=== PATIENT | male | born 1970 | race Caucasian/White ===

== ENCOUNTER 2019-07-03 10:27 | Day surgery (SDC) | payer BC ==
[~2019-07-03 10:27] MED LIST: Lactated Ringers 1,000 ML IV SCH; ceFAZolin 1 GM in Premix Bag 1 BAG IV ONE
[2019-07-03] MEDS ORDERED: fentaNYL 250 MCG/5 ML SDV ONE (11:25)
[2019-07-03] MEDS ORDERED: Midazolam 1 MG/ML 2 ML SDV ONE (11:25)
[2019-07-03] MEDS ORDERED: Propofol 200 MG/20 ML SDV ONE (11:25)
[2019-07-03] MEDS ORDERED: Ondansetron 4 MG/2 ML SDV ONE (11:26)
[2019-07-03] MEDS ORDERED: Lidocaine 2% 5 ML SDV ONE (11:26)
--- NOTE | 2019-07-03 11:38 | PCM.PREANE ---
Preanesthetic Assessment - Anesthesia/Transfusion/Family Hx Anesthesia History: Prior Anesthesia Without Reaction Family History of Anesthesia Reaction: No Transfusion History: No Prior Transfusion(s) Intubation History: Unknown - Review of Systems General: No Symptoms Pulmonary: No Symptoms Cardiovascular: No Symptoms Gastrointestinal: No Symptoms Neurological: No Symptoms Other: Reports: None - Physical Assessment Height: 6 ft 8 in Weight: 156.036 kg ASA Class: 2 Mental Status: Alert & Oriented x3 Airway Class: Mallampati = 3 Dentition: Reports: Normal Dentition, [place](s) (x2 on the back side) Thyro-Mental Finger Breadths: 2 (sloping chin) Mouth Opening Finger Breadths: 3 (narrow palate) ROM/Head Extension: Full Lungs: Clear to Auscultation, Normal Respiratory Effort Cardiovascular: Regular Rate, Regular Rhythm - Allergies Allergies/Adverse Reactions: Allergies Allergy/AdvReac Type Severity Reaction Status Date / Time No Known Allergies Allergy Verified 07/01/19 16:39 - Blood Blood Available: No - Anesthesia Plan Pre-Op Medication Ordered: None - Acknowledgements Anesthesia Type Planned: General Anesthesia Pt an Appropriate Candidate for the Planned Anesthesia: Yes Alternatives and Risks of Anesthesia Discussed w Pt/Guardian: Yes Pt/Guardian Understands and Agrees with Anesthesia Plan: Yes PreAnesthesia Questionnaire HEENT History: Reports: Allergic Rhinitis, Hard of Hearing Other HEENT History: has bilateral hearing aides Cardiovascular History: Reports: High Cholesterol Respiratory History: Reports: Asthma (mild), Sleep Apnea Other Respiratory History: uses CPAP, rarely uses inhaler, asthma is mostly allergy related Gastrointestinal History: Reports: GERD, Other (See Below) Other Gastrointestinal History: takes Pristiq to "slow his stomach down" Musculoskeletal History: Reports: Fracture Psychiatric History: Reports: Anxiety Other Psychiatric History: takes Lamictal for anxiety Endocrine/Metabolic History: Reports: Obesity/BMI 30+ (BMI 37.8) - Past Surgical History Head Surgeries/Procedures: Reports: None HEENT Surgical History: Reports: Naso-Sinus Surgery Other HEENT Surgeries/Procedures: Septoplasty x2 - SUBSTANCE USE Tobacco Use Within Last Twelve Months: Snuff/Dip Recreational Drug Use History: No - HOME MEDS Home Medications: Home Meds Calcium Carbonate [Calcium] 0 mg PO DAILY 07/01/19 [History] Cholecalciferol (Vitamin D3) [Vitamin D3] 0 mg PO DAILY 07/01/19 [History] Desvenlafaxine Succinate [Pristiq] 0 mg PO DAILY 07/01/19 [History] Levalbuterol Tartrate [Xopenex Hfa] 1 - 2 puff INH ASDIRECTED PRN 07/01/19 [ History] Loratadine [Claritin] 10 mg PO DAILY 07/01/19 [History] Magnesium 0 mg PO DAILY 07/01/19 [History] Multivitamin/Iron/Folic Acid [Centrum Adults Tablet] 1 tab PO DAILY 07/01/19 [ History] Omeprazole Magnesium [Prilosec Otc] 20 mg PO DAILY 07/01/19 [History] atorvaSTATin [Lipitor] 0 mg PO DAILY 07/01/19 [History] lamoTRIgine [Lamictal] 0 mg PO DAILY 07/01/19 [History] - CURRENT (IN HOUSE) MEDS Current Meds: Current Medications Lactated Ringer's (Ringers, Lactated) 1,000 mls @ 125 mls/hr IV ASDIRECTED KYMBERLY Discontinued Medications Fentanyl (Sublimaze) Confirm Administered Dose 250 mcg .ROUTE .STK-MED ONE Stop: 07/03/19 11:26 Cefazolin Sodium/Dextrose 1 gm (/ Premix) 50 mls @ 100 mls/hr IV ONETIME ONE Stop: 07/03/19 09:02 Lidocaine (Xylocaine-Mpf 2%) Confirm Administered Dose 5 ml .ROUTE .STK-MED ONE Stop: 07/03/19 11:27 Midazolam HCl (Versed 1 Mg/Ml) Confirm Administered Dose 2 mg .ROUTE .STK-MED ONE Stop: 07/03/19 11:26 Ondansetron HCl (Zofran) Confirm Administered Dose 4 mg .ROUTE .STK-MED ONE Stop: 07/03/19 11:27 Propofol (Diprivan 20 Ml) Confirm Administered Dose 400 mg .ROUTE .STK-MED ONE Stop: 07/03/19 11:26
[2019-07-03] MEDS ORDERED: Bupivacaine 0.25% 10 ML SDV ONE ×2 (12:30→12:34)
[2019-07-03] MEDS ORDERED: Ketamine 500 mg/10 ML MDV ONE (12:53)
[2019-07-03] MEDS ORDERED: Sodium Chloride 0.9% 20 ML ONE (12:53)
[2019-07-03] MEDS ORDERED: Dexamethasone 4 MG/ML 5 ML MDV ONE (12:55)
[2019-07-03] MEDS ORDERED: Glycopyrrolate 0.2 MG/ML SDV ONE ×2 (13:36→14:13)
[2019-07-03] MEDS ORDERED: ceFAZolin 1 GM Vial ONE (13:39)
[2019-07-03] MEDS ORDERED: Phenylephrine/Normal Saline 100 MCG/ML 10 ML Syringe ONE (13:53)
[2019-07-03] MEDS ORDERED: EPINEPHrine 1:10,000 1 MG/10 ML Syringe IVPUSH PRN (14:04)
[2019-07-03] MEDS ORDERED: Albuterol 0.083% 2.5 MG/3 ML Neb Soln NEB PRN (14:04)
[2019-07-03] MEDS ORDERED: Naloxone 0.4 MG/ML Syringe IVPUSH PRN (14:04)
[2019-07-03] MEDS ORDERED: 50% Dextrose in Water 50 ML Syringe IVPUSH PRN (14:04)
[2019-07-03] MEDS ORDERED: Atropine 0.1 MG/ML 10 ML Syringe IVPUSH PRN ×2 (14:04)
[2019-07-03] MEDS ORDERED: fentaNYL 100 MCG/2 ML SDV IVPUSH PRN (14:04)
[2019-07-03] MEDS ORDERED: Neostigmine Methylsulfate 1 MG/ML 5 ML Syringe ONE (14:13)
[2019-07-03] MEDS ORDERED: fentaNYL 100 MCG/2 ML SDV ONE (15:39)
--- NOTE | 2019-07-03 16:25 | PCM.POSTAN ---
POST ANESTHESIA ASSESSMENT - MENTAL STATUS Mental Status: Alert - VITAL SIGNS Vital Signs: Last Vital Signs Temp 36.9 C 07/03/19 15:11 Pulse 63 07/03/19 16:16 Resp 13 07/03/19 16:16 BP 152/61 H 07/03/19 16:16 Pulse Ox 95 07/03/19 16:16 - RESPIRATORY Respiratory Status: Respiratory Rate WNL - CARDIOVASCULAR CV Status: Pulse Rate WNL - GASTROINTESTINAL GI Status: No Symptoms - POST OP HYDRATION Hydration Status: Adequate & Stable
[2019-07-03] MEDS ORDERED: oxyCODONE 5 MG Tab PO ONE (16:31)
--- NOTE | 2019-07-03 17:01 | PCM48HPAN ---
Post Anesthesia Note - EVALUATION WITHIN 48HRS OF ANESTHETIC Vital Signs in Normal Range: Yes Patient Participated in Evaluation: Yes Respiratory Function Stable: Yes Airway Patent: Yes Cardiovascular Function Stable: Yes Hydration Status Stable: Yes Pain Control Satisfactory: Yes Nausea and Vomiting Control Satisfactory: Yes Mental Status Recovered: Yes Vital Signs: Last Vital Signs Temp 36.1 C 07/03/19 16:24 Pulse 75 07/03/19 16:39 Resp 16 07/03/19 16:39 BP 151/81 H 07/03/19 16:39 Pulse Ox 93 L 07/03/19 16:39
--- NOTE | 2019-07-05 09:54 | OR ---
SURGEON: KASIE FREED MD DATE OF PROCEDURE: 07/03/2019 The patient's surgery performed at [facility] on 07/03/2019. PREOPERATIVE DIAGNOSIS: Left shoulder impingement syndrome. POSTOPERATIVE DIAGNOSIS: Left shoulder impingement syndrome with acromial spur and chronically inflamed subacromial bursa with minimal thinning of rotator cuff. PROCEDURE: Left shoulder subacromial decompression, acromioplasty, bursectomy. PRIMARY SURGEON: Kasie Freed MD INDUSTRIAL RELATIONS MANAGER: Yasmine Martinez, nurse practitioner. ANESTHESIA: General anesthesia. ESTIMATED BLOOD LOSS: 50 mL. INDICATION FOR SURGERY: This is a 49-year-old man continued to have pain and weakness to left shoulder secondary to above-mentioned problem, resistant to conservative line of treatment. As the patient remained symptomatic, the patient was considered for above-mentioned procedure. All risks, complications, alternatives, and benefits were explained to the patient, and he agreed to proceed with surgery. DESCRIPTION OF PROCEDURE: The patient was given general anesthesia. The patient was kept in the beachchair position. Left upper extremity was prepared using Betadine scrub, followed by paint, draped in the usual standard fashion. anterior incision along the anteromedial aspect of the acromion was taken and extended distally approximately 2 cm in length. The skin, superficial fascia, and deep fascia dissected along the same line. Deltoid muscle was elevated along the anterolateral aspect of the acromion and subacromial space exposed. A large anterior inferior acromial spur was then excised in routine standard fashion. Following that, subacromial bursa inspected. There was found to be a subacromial bursa. This was also excised. All these tissues were sent for Pathology. Following the acromioplasty, there was noted to be minimal thinning of the rotator cuff without any complete tear. Therefore, there was no further reconstructive surgery of the rotator cuff carried out. Wound was then irrigated with normal saline followed by Betadine. Wound then closed in layered fashion with 1 Ethibond to the deltoid by approximating the sutures to the acromion. The repair was found to be sound and stable. with 2-0 Vicryl. Skin approximated with 5-0 Monocryl in a subcuticular stitch. Wound then covered with Adaptic, 4x4, ABD, Webril, and Ron wrap. Estimated blood loss 50 mL. The patient received 3 g of Ancef IV before commencing the procedure to prevent infection. There was no complication during or immediately following surgery. The patient recovered and transferred to recovery room in stable state. DEJUAN WATSON /[id number]
== END 2019-07-03 17:21 | disposition home or self-care (01) ==
LOC: MW.SDS 10:27
PROVIDERS: ATTEND Orthopaedic Surgery
DX: M75.42 Impingement syndrome of left shoulder (principal); M75.52 Bursitis of left shoulder; M75.82 Other shoulder lesions, left shoulder; E78.5 Hyperlipidemia, unspecified; J45.909 Unspecified asthma, uncomplicated; F41.9 Anxiety disorder, unspecified; F17.200 Nicotine dependence, unspecified, uncomplicated; G47.30 Sleep apnea, unspecified
CPT/HCPCS: 23130; A9270; J0131; J0690; J1100; J2001; J2250; J2370; J2405; J2704; J3010; J3490; J7120